=== PATIENT | male | born 1965 | race Caucasian/White ===

== ENCOUNTER 2016-12-05 10:47 | Outpatient (CLI) ==
[2014-05-25 20:13] VITALS: BMI 26.9
--- NOTE | 2016-12-05 11:07 | DI ---
EXAM: Chest two view, frontal and lateral views. HISTORY: Preoperative evaluation. COMPARISON: None available. FINDINGS: The heart size is normal. There is no pulmonary vascular congestion. The lungs are susie r. No pleural effusion or pneumothorax is seen. No acute osseous abnormality identified. IMPRESSION: No acute cardiopulmonary process.
[2016-12-05 11:17] LABS: BASOPHILS % (AUTO) 0.4 % (0.0-3.0); EOSINOPHILS # (AUTO) 0.2 K/ul (0.0-0.7); HEMOGLOBIN 15.9 g/dl (14.0-18.0); IMMATURE GRANULOCYTE % (AUTO) 0.3 % (0.0-5.0); LYMPHOCYTES # (AUTO) 3.3 K/uL (0.60-3.4); LYMPHOCYTES % (AUTO) 33.8 (10.0-50.0); MEAN CORPUSCULAR HEMOGLOBIN 30.8 pg (27.0-31.0); MEAN CORPUSCULAR HGB CONC 33.8 (31.8-35.4); MEAN CORPUSCULAR VOLUME 91.1 fl (80.0-94.0); MONOCYTES # (AUTO) 0.9 K/uL (0.4-2.0); MONOCYTES % (AUTO) 8.6 (0-10); NEUTROPHILS # (AUTO) 5.4 K/ul (2.0-6.9); NEUTROPHILS % (AUTO) 54.9; PLATELET COUNT 288 10^3/uL (140-440); RED BLOOD COUNT 5.16 10^6/ul (4.70-6.10); WHITE BLOOD COUNT 9.85 K/ul (4.2-10.2)
[2016-12-05 11:36] LABS: ANION GAP 12.1; BUN/CREATININE RATIO 18.18; CALCIUM 9.5 mg/dL (8.2-10.2); CREATININE 0.99 mg/dL (0.60-1.10); POTASSIUM 4.1 mmol/L (3.5-5.1)
== END 2016-12-05 10:48 | disposition home or self-care (01) ==
LOC: RAD 10:47
PROVIDERS: ATTEND Otolaryngology
DX: C44.91 Basal cell carcinoma of skin, unspecified (principal); Z01.812 Encounter for preprocedural laboratory examination; Z01.810 Encounter for preprocedural cardiovascular examination
CPT/HCPCS: 36415; 80048; 85025; 93005; 93010

== ENCOUNTER 2016-12-18 06:06 | Outpatient (CLI) ==
[2014-05-25 20:13] VITALS: BMI 26.9
--- NOTE | 2016-12-18 08:35 | ECHO2D ---
Date of Exam: 12/18/16 Ordering Physician: [facility]RAU[facility] Reason for Echo: SURGICAL CLEARANCE, ABNORMAL EKG M-Mode Normal Adult Results LV Dimensions Normal Adult Results AoV Opening excursions >1.6 >1.6 LVEDD-base- 3.5-5.8 4.7 Ao root dimensions 2.0-3.7 3.7 LVESD-base- 3.1-4.6 L. Atrium dimensions 1.9-3.8 4.1 Post. Wall thickness 0.8-1.1 1.2 IV septum (thickness) 0.7-1.2 1.2 Post. Wall excursion 0.72-1.3 NORMAL Septal motion NORMAL Systolic motion R. Ventricular cavity 1.5-2.0 NORMAL LVEF 60% 50% Paradoxical septal wall motion NORMAL 2-D : MILDLY ENLARGED LEFT ATRIAL CAVITY--NORMAL LEFT VENTRICLE CAVITY--NORMAL VALVES, NO EFFUSION, NO THROMBUS M-MODE: MV: NORMAL AV: NORMAL TV: NORMAL PV: CHAMBER SIZE: ENLARGED LEFT ATRIAL CAVITY WALL MOTION: NORMAL PERICARDIUM: NORMAL INTERPRETATION: 1. BORDERLINE LEFT VENTRICULAR HYPERTROPHY WITH MILDLY ENLARGED LEFT ATRIAL CAVITY 2. NORMAL LEFT VENTRICLE CAVITY 3. NORMAL VALVES MTDD
== END 2016-12-18 06:07 ==
LOC: CAR 06:06
PROVIDERS: ATTEND Emergency Medicine
DX: Z01.818 Encounter for other preprocedural examination (principal); R94.31 Abnormal electrocardiogram [ECG] [EKG]; C44.310 Basal cell carcinoma of skin of unspecified parts of face

== ENCOUNTER 2016-12-19 06:16 | Outpatient (CLI) ==
[2014-05-25 20:13] VITALS: BMI 26.9
== END 2016-12-19 06:17 | disposition home or self-care (01) ==
LOC: CAR 06:16
PROVIDERS: ATTEND Emergency Medicine
DX: Z01.810 Encounter for preprocedural cardiovascular examination (principal); C44.310 Basal cell carcinoma of skin of unspecified parts of face; R94.31 Abnormal electrocardiogram [ECG] [EKG]

== ENCOUNTER 2017-01-25 14:45 | Outpatient (CLI) ==
[2014-05-25 20:13] VITALS: BMI 26.9
[2017-01-25 15:07] LABS: BASOPHILS # (AUTO) 0.1 K/uL (0-0.2); BASOPHILS % (AUTO) 0.5 % (0.0-3.0); EOSINOPHILS # (AUTO) 0.2 K/ul (0.0-0.7); EOSINOPHILS % (AUTO) 1.7 % (0.0-7.0); HEMATOCRIT 44.9 % (42.0-52.0); HEMOGLOBIN 15.3 g/dl (14.0-18.0); IMMATURE GRANULOCYTE % (AUTO) 0.5 % (0.0-5.0); LYMPHOCYTES # (AUTO) 3.6 K/uL (0.60-3.4); LYMPHOCYTES % (AUTO) 34.7 (10.0-50.0); MEAN CORPUSCULAR HEMOGLOBIN 30.9 pg (27.0-31.0); MEAN CORPUSCULAR HGB CONC 34.1 (31.8-35.4); MEAN CORPUSCULAR VOLUME 90.7 fl (80.0-94.0); MONOCYTES # (AUTO) 0.9 K/uL (0.4-2.0); MONOCYTES % (AUTO) 8.5 (0-10); NEUTROPHILS # (AUTO) 5.6 K/ul (2.0-6.9); NEUTROPHILS % (AUTO) 54.1; PLATELET COUNT 304 10^3/uL (140-440); RED BLOOD COUNT 4.95 10^6/ul (4.70-6.10); WHITE BLOOD COUNT 10.42 K/ul (4.2-10.2)
[2017-01-25 15:17] LABS: BUN/CREATININE RATIO 21.11; CALCIUM 9.6 mg/dL (8.2-10.2); CREATININE 0.9 mg/dL (0.60-1.10)
== END 2017-01-25 14:46 | disposition home or self-care (01) ==
LOC: LAB 14:45
PROVIDERS: ATTEND Otolaryngology
DX: C44.91 Basal cell carcinoma of skin, unspecified (principal)
CPT/HCPCS: 36415; 80048; 85025

== ENCOUNTER 2017-06-06 13:08 | Outpatient (CLI) ==
[2014-05-25 20:13] VITALS: BMI 26.9
[2017-06-06 13:39] LABS: BASOPHILS # (AUTO) 0.1 K/uL (0-0.2); BASOPHILS % (AUTO) 0.5 % (0.0-3.0); EOSINOPHILS # (AUTO) 0.3 K/ul (0.0-0.7); EOSINOPHILS % (AUTO) 2.9 % (0.0-7.0); HEMATOCRIT 47.6 % (42.0-52.0); HEMOGLOBIN 15.9 g/dl (14.0-18.0); IMMATURE GRANULOCYTE % (AUTO) 0.5 % (0.0-5.0); LYMPHOCYTES % (AUTO) 29.8 (10.0-50.0); MEAN CORPUSCULAR HEMOGLOBIN 31.1 pg (27.0-31.0); MEAN CORPUSCULAR HGB CONC 33.4 (31.8-35.4); MEAN CORPUSCULAR VOLUME 93.2 fl (80.0-94.0); MONOCYTES # (AUTO) 0.7 K/uL (0.4-2.0); MONOCYTES % (AUTO) 7.4 (0-10); NEUTROPHILS # (AUTO) 5.8 K/ul (2.0-6.9); NEUTROPHILS % (AUTO) 58.9; PLATELET COUNT 293 10^3/uL (140-440); RED BLOOD COUNT 5.11 10^6/ul (4.70-6.10); WHITE BLOOD COUNT 9.92 K/ul (4.2-10.2)
[2017-06-06 14:10] LABS: ALBUMIN 3.9 g/dL (3.4-5.0); ALBUMIN/GLOBULIN RATIO 0.98; ANION GAP 15.4; BILIRUBIN,TOTAL 0.62 mg/dL (0.00-1.20); BUN/CREATININE RATIO 16.85; CALCIUM 9.8 mg/dL (8.2-10.2); CHOL/HDL RATIO 5.7 (4.5-6.4); CREATININE 0.89 mg/dL (0.60-1.10); POTASSIUM 4.4 mmol/L (3.5-5.1); TOTAL PROTEIN 7.9 g/dL (6.4-8.2)
== END 2017-06-06 13:09 | disposition home or self-care (01) ==
LOC: LAB 13:08
PROVIDERS: ATTEND Emergency Medicine
DX: I10 Essential (primary) hypertension (principal); G25.0 Essential tremor; Z12.5 Encounter for screening for malignant neoplasm of prostate
CPT/HCPCS: 36415; 80053; 80061; 84443; 85025

== ENCOUNTER 2017-09-10 10:53 | Outpatient (CLI) ==
[2014-05-25 20:13] VITALS: BMI 26.9
== END 2017-09-10 10:54 | disposition home or self-care (01) ==
LOC: RHC-LAB 10:53
PROVIDERS: ATTEND Emergency Medicine
DX: J06.9 Acute upper respiratory infection, unspecified (principal); R68.89 Other general symptoms and signs
CPT/HCPCS: 87804

== ENCOUNTER 2022-01-07 18:35 | Inpatient (IN) ==
[2022-01-07 18:41] VITALS: BMI 24.0
[2022-01-07] MEDS ORDERED: SOLU-MEDROL 125 MG IVP ONE (19:24)
[2022-01-07] MEDS ORDERED: VENTOLIN HFA (PER PUFF-WITH SPACER) IH ONE (19:24)
[2022-01-07] MEDS ORDERED: TYLENOL PO ONE (19:24)
[2022-01-07] MEDS ORDERED: ATROVENT HFA INHALER (PER PUFF-WITH SPACER) IH ONE (19:24)
[2022-01-07] MEDS ORDERED: MOTRIN PO ONE (19:24)
--- NOTE | 2022-01-07 20:05 | CT ---
EXAM: CHEST CT WITHOUT CONTRAST HISTORY: Cough and fever. TECHNIQUE: CT acquisition of the chest from the thoracic inlet to the upper abdomen without IV contra st administration. IV Contrast: None CT Dose Reduction Techniques Performed: Yes. COMPARISON: Chest radiograph 12/05/2016, CT cervical spine 05/04/2017 FINDINGS: Lines, Tubes, Devices: None. Lung Parenchyma and Airways: Central airways are patent without endobronchial lesion. No focal conso lidation. No suspicious pulmonary nodule. Tiny calcified granulomas in the left lower lobe. Pleural Space: No pleural effusion. No pleural thickening. No pneumothorax. Thoracic Inlet, Mediastinum, and Katerine: Thyroid gland is normal. No lymphadenopathy. 5.2 x 4.2 x 1.6 cm (CC X AP X TV) cystic lesion in the superior mediastinum to the left of the trachea, axial image 14, unchanged from prior cervical spine CT. Heart, Vessels, and Pericardium: Aorta is normal in caliber with no atherosclerotic calcifications. Main pulmonary artery is normal in caliber. Heart chambers are not enlarged. No significant valvula r calcifications. No significant coronary artery calcifications, however exam is not optimized for e valuation. No pericardial effusion or thickening. Bones and Soft Tissues: Minimal degenerative changes of the spine. No fracture. Chest wall soft tis sues are within normal limits. Upper Abdomen: Thickening of the bilateral adrenal glands likely due to adenomatous hyperplasia, lef t greater than right8. IMPRESSION: No acute thoracic abnormality. 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 All CT scans are performed using dose optimization techniques as appropriate to the performed exam an d include at least one of the following: Automated exposure control, adjustment of the mA and/or kV according t o size, and the use of iterative reconstruction technique.
[2022-01-07 20:06] LABS: ABG O2 HGB 91.4 % (95-100); ABG PH 7.45 (7.35-7.45); BEecf -1.1 (-2.0-3.0); COHb 3.4 (0.5-1.5); HCO3 22.9 (21-28); MetHb 1.6 (0-1.5); TCO2 23.9 (19-24); sO2 94.6 % (94-98)
[2022-01-07 20:09] LABS: HEMATOCRIT 44.3 % (42.0-52.0); HEMOGLOBIN 14.9 g/dl (14.0-18.0); MEAN CORPUSCULAR HEMOGLOBIN 30.3 pg (27.0-31.0); MEAN CORPUSCULAR HGB CONC 33.6 (31.8-35.4); MEAN CORPUSCULAR VOLUME 90.2 fl (80.0-94.0); PLATELET COUNT 426 10^3/uL (140-440); RDW COEFFICIENT OF VARIATION 12.8 % (11.6-14.8); RED BLOOD COUNT 4.91 10^6/ul (4.70-6.10); WHITE BLOOD COUNT 29.41 K/ul (4.2-10.2)
[2022-01-07 20:09] LABS: MOLECULAR FLU A NEGATIVE BY NAAT (NEGATIVE); MOLECULAR FLU B NEGATIVE BY NAAT (NEGATIVE)
[2022-01-07 20:45] LABS: ALANINE AMINOTRANSFERASE 26.9 U/L (0-50); ALKALINE PHOSPHATASE 101.5 U/L (38-126); ASPARTATE AMINO TRANSFERASE 27.4 U/L (17-59); BILIRUBIN,TOTAL 0.43 mg/dL (0.2-1.3); BLOOD UREA NITROGEN 19.3 mg/dL (9-20); CALCIUM 8.94 mg/dL (8.4-10.2); CARBON DIOXIDE 22.7 mmol/L (22-30.0); CHLORIDE 97.3 mmol/L (98-107); GLUCOSE 111.5 mg/dL (74-106); POTASSIUM 4.06 mmol/L (3.5-5.1); SODIUM 131.7 mmol/L (134.5-145); TOTAL PROTEIN 7.63 g/dL (6.3-8.2)
[2022-01-07 20:58] LABS: ANISOCYTOSIS NOT PRESENT (NOT PRESENT); TROPONIN I < 0.012 ng/ml (0.0000-0.120)
[2022-01-07] MEDS ORDERED: ZITHROMAX PO ONE (21:11)
[2022-01-07] MEDS ORDERED: ROCEPHIN 1 GM/50 ML D5W 1 GM/50 ML BAG IV ONE (21:11)
[2022-01-07 21:23] LABS: BILIRUBIN,URINE Negative (NEGATIVE); CLARITY,URINE Clear (CLEAR); COLOR,URINE Yellow (YELLOW); GLUCOSE, URINE (UA) Negative (NEGATIVE); KETONES,URINE 1+ (NEGATIVE); LEUKOCYTE ESTERASE ,URINE Negative (NEGATIVE); NITRITE,URINE Negative (NEGATIVE); PH,URINE 5.5 (5-9); PROTEIN,URINE 1+ (NEGATIVE); URINE, BLOOD 2+ (NEGATIVE); UROBILINOGEN,URINE 0.2 (0.2)
[2022-01-07 21:28] LABS: SQUAMOUS EPITHELIAL CELL,UR 0-2 (0-5); URINE WBC, MICROSCOPIC 0-2 (0-2)
[2022-01-07 21:29] LABS: MUCUS,URINE 2+ (NOT PRESENT)
[2022-01-07 21:30] LABS: AMPHETAMINE SCREEN,URINE NEGATIVE (NEGATIVE); BARBITURATE SCREEN,URINE NEGATIVE (NEGATIVE); BENZODIAZEPINES SCREEN,URINE NEGATIVE (NEGATIVE); CANNABINOID SCREEN,URINE NEGATIVE (NEGATIVE); COCAIN SCREEN,URINE NEGATIVE (NEGATIVE); METHADONE URINE SCREEN NEGATIVE (NEGATIVE); METHAMPHETAMINES SCREEN,URINE POSITIVE (NEGATIVE); OPIATE SCREEN,URINE NEGATIVE (NEGATIVE); OXYCODONE URINE SCREEN NEGATIVE (NEGATIVE); PHENCYCLIDINE SCREEN,URINE NEGATIVE (NEGATIVE); PROPOXYPHENE URINE SCREEN NEGATIVE (NEGATIVE); TRICYCLIC ANTIDEPRESSANTS URIN NEGATIVE (NEGATIVE)
--- NOTE | 2022-01-07 22:02 | ED.PDOC ---
General ED Provider: Dr. TOÑA MONTE MD Chief Complaint: Respiratory Complaint Stated Complaint: myalgias, mild SOB with occasional wheezing, GARRETT and fever x 2 days. Time Seen by Provider: 01/07/22 18:39 Mode of Arrival: Walk-In Information Source: Patient Exam Limitations: No limitations Primary Care Provider: TACO WRIGHT MD Nursing and Triage Documentation Reviewed and Agree: Yes Does patient meet sepsis criteria?: No If yes, has appropriate treatment been initiated?: No System Inflammatory Response Syndrome: Not Applicable Sepsis Protocol: For patient's 13 years and over: Temp is 96.8 and below OR 101 and greater Pulse >90 BPM Resp >20/minute Acutely Altered Mental Status Are patient's symptoms suggestive of a new infection, such as: -Pneumonia -Skin, Soft Tissue -Endocarditis -UTI -Bone, Joint Infection -Implantable Device -Acute Abdominal Infection -Wound Infection -Meningitis -Blood Stream Catheter Infection -Unknown Review of Systems Review Of Systems Constitutional: Reports No symptoms Eyes: Reports No symptoms Ears, Nose, Mouth, Throat: Reports No symptoms Respiratory: Reports No symptoms, Short of air and Wheezing Cardiac: Reports No symptoms GI: Reports No symptoms : Reports No symptoms Musculoskeletal: Reports No symptoms Skin: Reports No symptoms Neurological: Reports No symptoms Endocrine: Reports No symptoms Hematologic/Lymphatic: Reports No symptoms All Other Systems: Reviewed and Negative [facility] Medical History Basal cell carcinoma Bronchitis COPD (chronic obstructive pulmonary disease) Detached retina, right Viral syndrome Viral syndrome Family History Mother Diabetes Social History Smoking and tobacco status: Current every day smoker Tobacco type: cigarettes Smoking packs per day: 1 Passive smoking exposure: No Second hand smoke exposure: No Smoking risk assessment performed: No Alcohol intake: current Alcohol intake frequency: a few times a month Alcohol type: beer Counseling given: No Substance use type: does not use Counseling given: No Caregiver/support person: No Housing: apartment Marital status: D Lives independently: Yes Number of children: 3 service: No detention: No Current occupational status: unemployed Current occupational exposures/hazards: No Pets and animals: No History of recent travel: No Do you think of yourself as: straight/heterosexual Current gender identity: male Seatbelt use: always Helmet use: No Drives intoxicated or rides with intoxicated transit mixer driver: No Water heater temperature set < 120 degrees: Yes Working smoke detector in home: Yes Fire extinguisher in home: Yes Carbon monoxide detector in home: Yes Firearms in home: No Surgical History detached retina right Physical Exam Physical Exam Appearance: Reports Well-appearing, No pain distress and Well-nourished Ill-appearing: Mild Pain Distress: None Eyes: Reports MARLEY, EOMI and Conjunctiva clear ENT: Reports Ears normal, Nose normal and Oropharynx normal Neck: Supple Respiratory: Reports Airway patent, Breath sounds equal, Respirations nonlabored, Rhonchi and Wheezes Cardiovascular: Reports RRR, Pulses normal, No rub and No murmur GI/: Reports Soft, Nontender, No masses, Bowel sounds normal and No Organomegaly Musculoskeletal: Reports Normal strength, ROM intact, No edema and No calf tenderness Skin: Reports Warm, Dry and Normal color Neurological: Reports Sensation intact, Motor intact, Reflexes intact, Cranial nerves intact, Alert and Oriented Psychiatric: Reports Affect appropriate and Mood appropriate Interpretation Radiology Interpretation Radiology Interpretation By: Radiologist Xray Comments: see the report. Re-Evaluation Re-Evaluation Time of Re-Evaluation: 19:34 Status: Improved Vital Signs Stable: Yes Pain Level: 2 Appearance: Other (sweating and minimal diaphoresis) Lungs: Other (rhonchi with occasional wheezes.) Skin: Other (sweaty) Neuro: Alert and Oriented X3 CV: RRR Critical Care Note Critical Care Note Total Critical Care Time (mins): 0 Course Course Hematology/Chemistry: 01/08/22 04:45 01/08/22 04:45 Orders, Labs, Meds: Lab Review 01/07/22 01/07/22 01/07/22 19:10 19:16 19:37 WBC RBC Hgb Hct MCV MCH MCHC RDW Coeff of Alejandro Plt Count Neutrophils % (Manual) Band Neutrophils % Lymphocytes % (Manual) Monocytes % (Manual) Anisocytosis Puncture Site Lbrach Base Excess -1.1 O2 Saturation 94.6 ABG pH 7.45 ABG pCO2 33.0 L ABG pO2 70.0 L ABG HCO3 22.9 ABG Total CO2 23.9 Magan Test Pos Hemoglobin 1.6 H Oxyhemoglobin 91.4 L Carboxyhemoglobin 3.4 H Total Hemoglobin 15.0 Sodium Potassium Chloride Carbon Dioxide Anion Gap BUN Creatinine Estimated GFR (MDRD) BUN/Creatinine Ratio Glucose Lactic Acid Calcium Total Bilirubin AST ALT Alkaline Phosphatase Troponin I Total Protein Albumin Globulin Albumin/Globulin Ratio Urine Color Urine Clarity Urine pH Ur Specific Bovey Urine Protein Urine Glucose (UA) Urine Ketones Urine Blood Urine Nitrite Urine Bilirubin Urine Urobilinogen Ur Leukocyte Esterase Urine Microscopic RBC Urine Microscopic WBC Ur Squamous Epith Cells Urine Mucus Urine Opiates Screen Ur Oxycodone Screen Urine Methadone Screen Ur Propoxyphene Screen Ur Barbiturates Screen U Tricyclic Antidepress Ur Phencyclidine Scrn Ur Amphetamine Screen U Methamphetamines Scrn U Benzodiazepines Scrn Urine Cocaine Screen U Cannabinoids Screen Plasma/Serum Alcohol Influ A Molecular Assay Negative by naat Influ B Molecular Assay Negative by naat SARS CoV-2 RNA Rapid ROGER Negative 01/07/22 01/07/22 01/07/22 19:54 19:54 19:54 WBC 29.41 H RBC 4.91 Hgb 14.9 Hct 44.3 MCV 90.2 MCH 30.3 MCHC 33.6 RDW Coeff of Alejandro 12.8 Plt Count 426 Neutrophils % (Manual) 77.0 H Band Neutrophils % 3.0 Lymphocytes % (Manual) 12.0 Monocytes % (Manual) 8.0 Anisocytosis Not present Puncture Site Base Excess O2 Saturation ABG pH ABG pCO2 ABG pO2 ABG HCO3 ABG Total CO2 Magan Test Hemoglobin Oxyhemoglobin Carboxyhemoglobin Total Hemoglobin Sodium 131.7 L Potassium 4.06 Chloride 97.3 L Carbon Dioxide 22.7 Anion Gap 15.76 BUN 19.3 Creatinine 1.00 Estimated GFR (MDRD) 77.00 BUN/Creatinine Ratio 19.30 Glucose 111.5 H Lactic Acid 0.66 L Calcium 8.94 Total Bilirubin 0.43 AST 27.4 ALT 26.9 Alkaline Phosphatase 101.5 Troponin I < 0.012 Total Protein 7.63 Albumin 4.00 Globulin 3.63 Albumin/Globulin Ratio 1.10 Urine Color Urine Clarity Urine pH Ur Specific Bovey Urine Protein Urine Glucose (UA) Urine Ketones Urine Blood Urine Nitrite Urine Bilirubin Urine Urobilinogen Ur Leukocyte Esterase Urine Microscopic RBC Urine Microscopic WBC Ur Squamous Epith Cells Urine Mucus Urine Opiates Screen Ur Oxycodone Screen Urine Methadone Screen Ur Propoxyphene Screen Ur Barbiturates Screen U Tricyclic Antidepress Ur Phencyclidine Scrn Ur Amphetamine Screen U Methamphetamines Scrn U Benzodiazepines Scrn Urine Cocaine Screen U Cannabinoids Screen Plasma/Serum Alcohol Influ A Molecular Assay Influ B Molecular Assay SARS CoV-2 RNA Rapid ROGER 01/07/22 01/07/22 01/07/22 19:54 21:11 21:11 WBC RBC Hgb Hct MCV MCH MCHC RDW Coeff of Alejandro Plt Count Neutrophils % (Manual) Band Neutrophils % Lymphocytes % (Manual) Monocytes % (Manual) Anisocytosis Puncture Site Base Excess O2 Saturation ABG pH ABG pCO2 ABG pO2 ABG HCO3 ABG Total CO2 Magan Test Hemoglobin Oxyhemoglobin Carboxyhemoglobin Total Hemoglobin Sodium Potassium Chloride Carbon Dioxide Anion Gap BUN Creatinine Estimated GFR (MDRD) BUN/Creatinine Ratio Glucose Lactic Acid Calcium Total Bilirubin AST ALT Alkaline Phosphatase Troponin I Total Protein Albumin Globulin Albumin/Globulin Ratio Urine Color Yellow Urine Clarity Clear Urine pH 5.5 Ur Specific Bovey >=1.030 Urine Protein 1+ H Urine Glucose (UA) Negative Urine Ketones 1+ H Urine Blood 2+ H Urine Nitrite Negative Urine Bilirubin Negative Urine Urobilinogen 0.2 Ur Leukocyte Esterase Negative Urine Microscopic RBC 2-5 Urine Microscopic WBC 0-2 Ur Squamous Epith Cells 0-2 Urine Mucus 2+ Urine Opiates Screen Negative Ur Oxycodone Screen Negative Urine Methadone Screen Negative Ur Propoxyphene Screen Negative Ur Barbiturates Screen Negative U Tricyclic Antidepress Negative Ur Phencyclidine Scrn Negative Ur Amphetamine Screen Negative U Methamphetamines Scrn Positive H U Benzodiazepines Scrn Negative Urine Cocaine Screen Negative U Cannabinoids Screen Negative Plasma/Serum Alcohol < 10.0 Influ A Molecular Assay Influ B Molecular Assay SARS CoV-2 RNA Rapid ROGER Orders Category Date Time Status ADMIT PATIENT INPATIENT .TO [facility] (MONITORED BED) ADMISSION 01/07/22 22:08 Active ABG DRAW REQUEST Stat CARDIO 01/07/22 19:26 Completed EKG-(ED ONLY) Stat CARDIO 01/07/22 19:24 Completed METERED DOSE INHALATION Routine CARDIO 01/07/22 19:29 Completed METERED DOSE INHALATION Routine CARDIO 01/07/22 22:20 Completed OXYGEN Routine CARDIO 01/07/22 22:12 Active ACTIVITY .Up in Chair CARE 01/07/22 22:08 Active CASE MANAGEMENT CONSULT ONCE CARE 01/07/22 22:11 Active INTAKE & OUTPUT Q8HR CARE 01/07/22 22:08 Active IP: INSERT SALINE LOCK ONCE CARE 01/07/22 22:08 Active TELEMETRY MONITORING TELE CARE 01/07/22 22:09 Active VITAL SIGNS Q8HR CARE 01/07/22 22:08 Active REGULAR DIET DIETARY 01/07/22 Breakfast Ordered Saline Lock [ED IV/MEDIPORT/POWERPORT] .ONCE EMERGENCY 01/07/22 19:24 Active ABG COOX Stat LAB 01/07/22 19:37 Completed BLOOD CULTURE (ED ONLY) Stat LAB 01/07/22 20:04 Received CBC W/ AUTO DIFF DAILY@0600 LAB 01/08/22 04:45 Completed CBC W/ AUTO DIFF DAILY@0600 LAB 01/09/22 06:00 Ordered CBC W/ AUTO DIFF Stat LAB 01/07/22 19:54 Completed COMPREHENSIVE METABOLIC PANEL DAILY@0600 LAB 01/08/22 04:45 Completed COMPREHENSIVE METABOLIC PANEL DAILY@0600 LAB 01/09/22 06:00 Ordered COMPREHENSIVE METABOLIC PANEL Stat LAB 01/07/22 19:54 Completed ETOH LEVEL [BLOOD ALCOHOL] Stat LAB 01/07/22 19:54 Completed FLU A/B MOLECULAR Stat LAB 01/07/22 19:16 Completed LACTIC ACID Stat LAB 01/07/22 19:54 Completed MANUAL DIFFERENTIAL Stat LAB 01/07/22 19:54 Completed MOLECULAR GROUP A STREP Stat LAB 01/07/22 19:16 Completed SARS COV-2 RNA RAPID ROGER Stat LAB 01/07/22 19:10 Completed TROPONIN I Stat LAB 01/07/22 19:54 Completed URINALYSIS C & S IF INDICATED Stat LAB 01/07/22 21:11 Completed URINE DRUG SCREEN (RAPID FOR ED) [DRUG SCREEN, URINE, LAB 01/07/22 21:11 Completed RAPID] Stat 0.9 % Sodium Chloride [Saline Flush] MEDS 01/07/22 19:24 Active 1 syr IVF PRN PRN Acetaminophen [Tylenol] MEDS 01/07/22 19:24 Discontinued 650 mg PO ONCE ONE Acetaminophen [Tylenol] MEDS 01/07/22 22:13 Active 650 mg PO Q8H PRN Albuterol Inhaler(with Spacer) [Ventolin Hfa (Per Puff- MEDS 01/07/22 19:24 Discontinued with Spacer)] 2 puff IH ONCE ONE Albuterol Inhaler(with Spacer) [Ventolin Hfa (Per Puff- MEDS 01/07/22 22:30 Discontinued with Spacer)] 2 puff IH Q6H Azithromycin [Zithromax] MEDS 01/08/22 09:00 Active 500 mg PO DAILY Azithromycin [Zithromax] MEDS 01/07/22 21:11 Discontinued 500 mg PO ONCE ONE Ceftriaxone/D5w 1 gm Premix [Rocephin 1 gm/50 ml D5w] MEDS 01/08/22 21:00 Active 1 gm in 50 ml IV BEDTIME Ceftriaxone/D5w 1 gm Premix [Rocephin 1 gm/50 ml D5w] MEDS 01/07/22 21:11 Discontinued 1 gm in 50 ml IV ONCE Gabapentin [Neurontin] MEDS 01/08/22 09:00 Active 300 mg PO TID Guaifenesin/Dextromethorphan [Mucinex Dm ER 600-30 mg MEDS 01/07/22 21:30 Active Tablet] 1 each PO Q12HR Ibuprofen [Motrin] MEDS 01/07/22 19:24 Discontinued 800 mg PO ONCE ONE Ibuprofen [Motrin] MEDS 01/07/22 22:30 Active 800 mg PO Q8H Ipratropium Inhaler(Spacer) [Atrovent Hfa Inhaler (Per MEDS 01/07/22 19:24 Discontinued Puff-with Spacer)] 2 puff IH ONCE ONE Methylprednisolone Sod Succ/Pf [Solu-Medrol 125 mg] MEDS 01/07/22 19:24 Discontinued 125 mg IVP ONCE ONE Methylprednisolone Sod Succ/Pf [Solu-Medrol 125 mg] MEDS 01/07/22 22:30 Discontinued 125 mg IVP Q6H Omeprazole [Prilosec] MEDS 01/08/22 09:00 Active 20 mg PO BID Sodium Chloride 0.9% [Sodium Chloride] 1,000 ml MEDS 01/07/22 22:30 Active IV 75 mls/hr RESUSCITATION STATUS Routine OTHERS 01/07/22 22:[address] CHEST W/O CONTRAST Stat RADS 01/07/22 19:24 Completed Medications Generic Name Dose Route Start Last Admin Trade Name Freq PRN Reason Stop Dose Admin Acetaminophen 650 mg 01/07/22 22:13 Acetaminophen 325 Mg Tablet PO Q8H PRN Mild Pain Albuterol Sulfate 2 puff 01/08/22 12:00 Albuterol Sulfate (Ventolin Hfa) 18 Gm 1 Puff With Spacer IH RTQ6H [facility] Azithromycin 500 mg 01/08/22 09:00 Azithromycin 250 Mg Tablet PO 01/11/22 08:59 DAILY [facility] Gabapentin 300 mg 01/08/22 09:00 Gabapentin 300 Mg Capsule PO TID ANDRY Guaifenesin/Dextromethorphan 1 each 01/07/22 21:30 01/07/22 22:22 Guaifenesin/Dextromethorphan 1 Each Tab.Er.12h PO 1 each Q12HR ANDRY Administration Sodium Chloride 1,000 mls @ 75 mls/hr 01/07/22 22:30 01/08/22 05:38 Sodium Chloride IV 75 mls/hr .[id number] ANDRY Administration CEFTRIAXONE/D5W 1 GM PREMIX 1 gm in 50 mls @ 75 mls/hr 01/08/22 21:00 Rocephin 1 Gm/50 Ml D5w IV 01/11/22 20:59 BEDTIME [facility] Ibuprofen 800 mg 01/07/22 22:30 01/08/22 05:33 Ibuprofen 400 Mg Tablet PO 800 mg Q8H [facility] Administration Ipratropium Hiram 2 puff 01/08/22 00:00 01/08/22 05:23 Ipratropium Hiram 12.9 Gm Hfa Inhaler Per Puff With Spacer IH Not Given RTQ6H [facility] Lisinopril 10 mg 01/08/22 09:00 Lisinopril 10 Mg Tablet PO DAILY [facility] Methylprednisolone Sodium Succinate 125 mg 01/08/22 05:00 01/08/22 05:33 Methylprednisolone Sod Succ/Pf 125 Mg/2 Ml Vial IVP 125 mg Q6H [facility] Administration Omeprazole 20 mg 01/08/22 09:00 Omeprazole 20 Mg Capsule. PO BID [facility] Sodium Chloride 1 syr 01/07/22 19:24 0.9% Sodium Chloride 10 Ml Disp.Syrin IVF PRN PRN To flush IV Thiamine HCl 100 mg 01/08/22 09:00 Vitamin B-1 100 Mg Tablet PO DAILY [facility] Discontinued Medications Generic Name Dose Route Start Last Admin Trade Name Freq PRN Reason Stop Dose Admin Acetaminophen 650 mg 01/07/22 19:24 01/07/22 20:32 Acetaminophen 325 Mg Tablet PO 01/07/22 19:25 650 mg ONCE ONE Administration Albuterol Sulfate 2 puff 01/07/22 19:24 01/07/22 20:15 Albuterol Sulfate (Ventolin Hfa) 18 Gm 1 Puff With Spacer IH 01/07/22 19:25 2 puff ONCE ONE Administration Albuterol Sulfate 2 puff 01/07/22 22:30 01/08/22 04:55 Albuterol Sulfate (Ventolin Hfa) 18 Gm 1 Puff With Spacer IH 2 puff Q6H ANDRY Administration Azithromycin 500 mg 01/07/22 21:11 01/07/22 21:19 Azithromycin 250 Mg Tablet PO 01/07/22 21:12 500 mg ONCE ONE Administration CEFTRIAXONE/D5W 1 GM PREMIX 1 gm in 50 mls @ 75 mls/hr 01/07/22 21:11 01/07/22 21:19 Rocephin 1 Gm/50 Ml D5w IV 01/07/22 21:50 75 mls/hr ONCE ONE Administration Ibuprofen 800 mg 01/07/22 19:24 01/07/22 20:32 Ibuprofen 400 Mg Tablet PO 01/07/22 19:25 800 mg ONCE ONE Administration Ipratropium Hiram 2 puff 01/07/22 19:24 01/07/22 20:15 Ipratropium Hiram 12.9 Gm Hfa Inhaler Per Puff With Spacer IH 01/07/22 19:25 2 puff ONCE ONE Administration Methylprednisolone Sodium Succinate 125 mg 01/07/22 19:24 01/07/22 20:32 Methylprednisolone Sod Succ/Pf 125 Mg/2 Ml Vial IVP 01/07/22 19:25 125 mg ONCE ONE Administration Methylprednisolone Sodium Succinate 125 mg 01/07/22 22:30 01/07/22 23:27 Methylprednisolone Sod Succ/Pf 125 Mg/2 Ml Vial IVP Not Given Q6H [facility] Vital Signs: Temp Pulse Resp BP Pulse Ox 01/07/22 18:37 100.5 F H 94 H 16 129/85 96 Discharge Plan Discharge Patient Disposition: ADMITTED INPATIENT Discharge Problem: COPD (chronic obstructive pulmonary disease), Bronchitis, Viral syndrome Did you review [place] SCREED OPERATOR?: Not Applicable ED Provider: TOÑA MONTE Condition: Serious Physician Progress Note: []21 22 Pt ill but stable in the ED. For admission to Hospitalist service per Dr Mcneill's note of 08/09/2021.
[2022-01-07] MEDS ORDERED: TYLENOL PO PRN (22:13)
[2022-01-07] MEDS: MUCINEX DM ER 600-30 MG TABLET PO SCH (22:22)
[2022-01-07] MEDS ORDERED: SOLU-MEDROL 125 MG IVP SCH (22:30)
[2022-01-07] MEDS: VENTOLIN HFA (PER PUFF-WITH SPACER) IH SCH (23:27)
[2022-01-07] MEDS: MOTRIN PO SCH (23:27)
[2022-01-07] MEDS ORDERED: THIAMINE PO SCH (23:45)
[2022-01-07] MEDS ORDERED: ZESTRIL PO SCH (23:45)
[2022-01-08] MEDS: ATROVENT HFA INHALER (PER PUFF-WITH SPACER) IH SCH ×5 (04:55→23:15)
[2022-01-08] MEDS: VENTOLIN HFA (PER PUFF-WITH SPACER) IH SCH ×4 (04:55→23:15)
[2022-01-08 05:00] LABS: HEMATOCRIT 43.7 % (42.0-52.0); HEMOGLOBIN 14.7 g/dl (14.0-18.0); MEAN CORPUSCULAR HEMOGLOBIN 30.5 pg (27.0-31.0); MEAN CORPUSCULAR HGB CONC 33.6 (31.8-35.4); MEAN CORPUSCULAR VOLUME 90.7 fl (80.0-94.0); PLATELET COUNT 410 10^3/uL (140-440); RED BLOOD COUNT 4.82 10^6/ul (4.70-6.10); WHITE BLOOD COUNT 29.18 K/ul (4.2-10.2)
[2022-01-08 05:14] LABS: ALANINE AMINOTRANSFERASE 25.7 U/L (0-50); ALBUMIN 3.89 g/dL (3.5-5.0); ALKALINE PHOSPHATASE 108.5 U/L (38-126); ASPARTATE AMINO TRANSFERASE 22.1 U/L (17-59); BILIRUBIN,TOTAL 0.44 mg/dL (0.2-1.3); BLOOD UREA NITROGEN 26.5 mg/dL (9-20); CALCIUM 8.88 mg/dL (8.4-10.2); CARBON DIOXIDE 21.8 mmol/L (22-30.0); CHLORIDE 99.8 mmol/L (98-107); CREATININE 1.11 mg/dL (0.60-1.10); GLUCOSE 183.5 mg/dL (74-106); POTASSIUM 4.12 mmol/L (3.5-5.1); SODIUM 135.7 mmol/L (134.5-145); TOTAL PROTEIN 7.51 g/dL (6.3-8.2)
[2022-01-08 05:18] LABS: ANISOCYTOSIS NOT PRESENT (NOT PRESENT)
[2022-01-08] MEDS: MOTRIN PO SCH ×3 (05:33→20:30)
[2022-01-08] MEDS: SOLU-MEDROL 125 MG IVP SCH ×4 (05:33→23:55)
[2022-01-08] MEDS: SODIUM CHLORIDE 1,000 ML IV SCH ×3 (05:38→20:30)
[2022-01-08] MEDS: MUCINEX DM ER 600-30 MG TABLET PO SCH ×2 (08:09→20:29)
[2022-01-08] MEDS: PRILOSEC PO SCH ×2 (08:09→16:56)
[2022-01-08] MEDS: THIAMINE PO SCH (08:09)
[2022-01-08] MEDS: ZESTRIL PO SCH (08:10)
[2022-01-08] MEDS: NEURONTIN PO SCH ×3 (08:10→20:29)
--- NOTE | 2022-01-08 13:15 | PCM.PROG ---
Date Seen by Provider: 01/08/22 Time Seen by Provider: 13:11 Subjective: pt improving, on RA, wants a nicotine patch Objective: Vitals: T=98.0 F, P=55, R=18, ZM=459/68, SPO2=95 HEENT: []conjunctiva clear Neck: []supple Lungs: [] slight end expiratory wheeze CVS: []RRR Abdomen: []nondistended Extremities: [] Neurological: []alert and oriented Skin: []pink Lab/Tests/Diagnostic Imaging: [] wbc 29, +meth, ct chest nap Plan: continue solumedrol q6, zithromax po, rocephin, nicotine patch may discharge home tomorrow with improving white count care to Dr Galvez at 19:00
[2022-01-08] MEDS: NICODERM 21 MG TD SCH (13:35)
[2022-01-08] MEDS ORDERED: ZITHROMAX PO SCH (21:00)
[2022-01-08] MEDS ORDERED: ROCEPHIN 1 GM/50 ML D5W 1 GM/50 ML BAG IV SCH (21:00)
[2022-01-09] MEDS: ATROVENT HFA INHALER (PER PUFF-WITH SPACER) IH SCH ×2 (05:00→11:05)
[2022-01-09] MEDS: VENTOLIN HFA (PER PUFF-WITH SPACER) IH SCH ×2 (05:00→11:04)
[2022-01-09 05:15] LABS: HEMATOCRIT 40.6 % (42.0-52.0); HEMOGLOBIN 13.4 g/dl (14.0-18.0); MEAN CORPUSCULAR HEMOGLOBIN 30.1 pg (27.0-31.0); MEAN CORPUSCULAR VOLUME 91.2 fl (80.0-94.0); PLATELET COUNT 437 10^3/uL (140-440); RED BLOOD COUNT 4.45 10^6/ul (4.70-6.10); WHITE BLOOD COUNT 30.47 K/ul (4.2-10.2)
[2022-01-09 05:21] VITALS: BP 109/61; TEMP 96.7
[2022-01-09 05:27] LABS: ALANINE AMINOTRANSFERASE 25.6 U/L (0-50); ALBUMIN 3.31 g/dL (3.5-5.0); ALKALINE PHOSPHATASE 90.3 U/L (38-126); ASPARTATE AMINO TRANSFERASE 18.3 U/L (17-59); BILIRUBIN,TOTAL 0.11 mg/dL (0.2-1.3); CALCIUM 8.43 mg/dL (8.4-10.2); CARBON DIOXIDE 22.5 mmol/L (22-30.0); CHLORIDE 104.2 mmol/L (98-107); CREATININE 0.81 mg/dL (0.60-1.10); GLUCOSE 197.3 mg/dL (74-106); POTASSIUM 4.1 mmol/L (3.5-5.1); SODIUM 136.1 mmol/L (134.5-145); TOTAL PROTEIN 6.6 g/dL (6.3-8.2)
[2022-01-09 05:31] LABS: ANISOCYTOSIS NOT PRESENT (NOT PRESENT)
[2022-01-09] MEDS: MOTRIN PO SCH (05:55)
[2022-01-09] MEDS: SOLU-MEDROL 125 MG IVP SCH ×2 (05:55→11:27)
[2022-01-09] MEDS: PRILOSEC PO SCH (05:55)
[2022-01-09] MEDS: MUCINEX DM ER 600-30 MG TABLET PO SCH (09:12)
[2022-01-09] MEDS: NEURONTIN PO SCH (09:12)
[2022-01-09] MEDS: ZESTRIL PO SCH (09:12)
[2022-01-09] MEDS: THIAMINE PO SCH (09:12)
[2022-01-09] MEDS: NICODERM 21 MG TD SCH (09:13)
[2022-01-09] MEDS ORDERED: ROCEPHIN 1 GM/50 ML D5W 1 GM/50 ML BAG IV ONE (11:10)
[2022-01-09] MEDS ORDERED: ZITHROMAX PO ONE (11:11)
--- NOTE | 2022-01-09 11:57 | PCM.DC ---
Final Diagnosis: COPD exacerbation Acute Bronchitis Physical Exam Appearance: Well-appearing Pain Distress: None Eyes: Not Examined ENT: Nose normal Neck: Not Examined Respiratory: Airway patent, Breath sounds clear and Breath sounds diminished Cardiovascular: RRR, Pulses normal, No rub and No murmur GI/: Not Examined Musculoskeletal: No edema Skin: Warm and Dry Neurological: Motor intact and Oriented Psychiatric: Affect appropriate and Mood appropriate (1) Bronchitis: Status: Acute Code(s): J40 - Bronchitis, not specified as acute or chronic SNOMED Code(s): 74644480 (2) COPD (chronic obstructive pulmonary disease): Status: Acute Code(s): J44.9 - Chronic obstructive pulmonary disease, unspecified SNOMED Code(s): 56482479 Reason for Hospitalization: COPD exacernation Prognosis/Condition at Discharge: Patient was admitted with shortness of breath and diangosed with COPD exacerbation and acute bronchitis. he was treated with IV steroids, breathing treatments and Antibiotcs. States he now feels better back to baseline. Admits that he smokes alot and has tried quiting in the past without any success. States he is ready to go home he is aware that his WBC is elevated but it is thought due to being on steroids every 8 hours. Medications at Discharge: Ambulatory Orders Medication Instructions Recorded ibuprofen 800 mg tablet 800 mg PO PRN 12/14/16 acetaminophen 325 mg tablet 325 mg PO ONCE PRN Fever 10/31/21 (Tylenol) thiamine HCl (vitamin B1) 100 mg 100 mg PO QDAY #90 tabs 10/31/21 tablet gabapentin 300 mg capsule 300 mg PO TID #90 caps 12/16/21 lisinopril 10 mg tablet 10 mg PO QDAY #30 tabs 12/16/21 Lab/Diagnostics: Abnormal Lab Results 01/09/22 01/09/22 04:54 04:54 WBC 30.47 H RBC 4.45 L Hgb 13.4 L Hct 40.6 L MCV 91.2 MCH 30.1 MCHC 33.0 RDW Coeff of Alejandro 13.0 Plt Count 437 Neutrophils % (Manual) 82.0 H Band Neutrophils % 3.0 Lymphocytes % (Manual) 6.0 L Monocytes % (Manual) 4.0 Hypersegmented Neuts 5.0 H Anisocytosis Not present Sodium 136.1 Potassium 4.10 Chloride 104.2 Carbon Dioxide 22.5 Anion Gap 13.50 BUN 26.0 H Creatinine 0.81 Estimated GFR (MDRD) 98.00 BUN/Creatinine Ratio 32.09 Glucose 197.3 H Calcium 8.43 Total Bilirubin 0.11 L AST 18.3 ALT 25.6 Alkaline Phosphatase 90.3 Total Protein 6.60 Albumin 3.31 L Globulin 3.29 Albumin/Globulin Ratio 1.00 Education Provided to Patient and Family: Smoking cessation Follow-ups: .Follow-up with your PCP in 3-5 days. Take medications as prescribed. Return if worse or concerned. Discharge Disposition: Home Hospital Course: Breathing improved daily with Treatments for his COPD and Bronchitis. Now feels he is at baseline Not needing oxygen. Plan: Discharge home Follow uip with PCP in 3-5 days Return if worse RX Steroids. No need for antibiotics as they were completed in the hospital.
== END 2022-01-09 12:30 | disposition home or self-care (01) | DRG 191 ==
LOC: ED 18:35 → MEDSURG A 22:23
PROVIDERS: ADMIT Emergency Medicine; ATTEND Internal Medicine Geriatric Medicine
DX: J44.9 Chronic obstructive pulmonary disease, unspecified; Z51.81 Encounter for therapeutic drug level monitoring; B34.9 Viral infection, unspecified; Z79.899 Other long term (current) drug therapy; Z20.822 Contact with and (suspected) exposure to COVID-19; J44.1 Chronic obstructive pulmonary disease with (acute) exacerbation; F17.210 Nicotine dependence, cigarettes, uncomplicated; J40 Bronchitis, not specified as acute or chronic